=== PATIENT | male | born 1995 | race Caucasian/White ===

== ENCOUNTER 2021-02-14 03:14 | Emergency (ER) | payer SELFPAY ==
--- NOTE | ~2021-02-14 | XR_ITS ---
EXAMINATION: XR foot LT min 3V DATE: 02/14/2021 04:33 INDICATION: Heel laceration. TECHNIQUE: Dorsoplantar, two oblique and lateral views of the left foot were obtained. COMPARISON: None. FINDINGS: Alignment is normal. No fracture. Joint spaces are normal. Soft tissues are unremarkable. No radiopaq ue foreign bodies. IMPRESSION: 1. Negative left foot radiographs. Reviewed, dictated and finalized at location A.
[2021-02-14 03:17] VITALS: BP 130/84; PULSE 106; RESP 18; TEMP 36.7; O2SAT 100
--- NOTE | 2021-02-14 03:20 | ED.WOUNDLAC ---
HPI - Wound/Laceration General Chief Complaint: Wound/Laceration <Milli Bay MD - Last Filed: 02/15/21 07:47> Stated Complaint: lacerations to left leg, knee, & heel <Milli Bay MD - Last Filed: 02/15/21 07:47> Time Seen by Provider: 02/14/21 03:20 <Milli Bay MD - Last Filed: 02/15/21 07:47> Source: family and EMS <Milli Bay MD - Last Filed: 02/15/21 07:47> Mode of arrival: EMS <Milli Bay MD - Last Filed: 02/15/21 07:47> Limitations: other (combativeness) <Milli Bay MD - Last Filed: 02/15/21 07:47> History of Present Illness HPI narrative: 25-year-old male brought by EMS with police escort after police were called by family. Apparently patient drank 3 bottles of wine started to get violent and agitated and then stepped on a glass table, stepped and also smashed a picture with his foot. Patient arrives intoxicated alert combative with left heel laceration and 2 lacerations to the proximal knee. Sisters at bedside. Sister states she is able to call police. When tried to direct patient, patient became combative with the event security officer and staff; patient was then medicated and put in restraints. Family feels patient needs to be evaluated for depression, HI and combatitiveness. <Milli Bay MD - Last Filed: 02/15/21 07:47> Related Data Allergies/Adverse Reactions: Allergies Allergy/AdvReac Type Severity Reaction Status Date / Time No Known Allergies Allergy Unknown Verified 02/14/21 03:26 <Milli Bay MD - Last Filed: 02/15/21 07:47> Review of Systems Review of Systems: ROS unobtainable: Yes unobtainable due to medical condition <Milli Bay MD - Last Filed: 02/15/21 07:47> PMFSH Social History Social History: Social History Smoking status: Never smoker Alcohol intake: never <Milli Bay MD - Last Filed: 02/15/21 07:47> Exam Narrative: General: alert, afebrile, agitated, intoxicated Head: normocephalic, atraumatic Eyes: EOMI bilaterally, anicteric, no injection ENT: moist mucous membranes, oropharynx patent, no rhinorrhea Chest: equal chest rise bilaterally, no chest wall trauma noted CV: regular rate, no YARA B, calf size equal B EXT: L LEG; 2 x 1 cm superficial wounds to distal thigh and knee; 3 cm laceration to proximal L plantar heel subcutaneous; moving all extremities equally Skin: warm, dry, no pallor Neuro: alert, oriented x 3; CN 2-12 grossly intact, no dysarthria Psych: affect labile, angry, anxious, thought content agitated, combative; intoxicated denies SI/HI <Milli Bay MD - Last Filed: 02/15/21 07:47> Course Course Emergency Course: @ 1245 deemed still too sleepy to evaluate by crisis <Alexandre Gifford MD - Last Filed: 02/14/21 14:29> Reevaluation(s) Reevaluation #1: Patient combative, spitting on floor, refuses to get in gown. Intoxicated. Will medicate for safety. Alvaro ALMANZA called. <Milli Bay MD - Last Filed: 02/15/21 07:47> Received signout patient pending reevaluation by crisis. Patient was resting comfortably Active SI or HI. He was evaluated by crisis who dropped a safety plan with the patient. Patient comfortable with outpatient plan. <Mando Haque MD - Last Filed: 02/14/21 21:38> Date: 02/14/21 <Milli Bay MD - Last Filed: 02/15/21 07:47> 02/14/21 <Mando Haque MD - Last Filed: 02/14/21 21:38> Time: 03:31 <Milli Bay MD - Last Filed: 02/15/21 07:47> 19:56 <Mando Haque MD - Last Filed: 02/14/21 21:38> Reevaluation #2: Patient asleep NAD, restraints removed <Milli Bay MD - Last Filed: 02/15/21 07:47> Date: 02/14/21 <Milli Bay MD - Last Filed: 02/15/21 07:47> Time: 04:35 <Milli Bay MD - Last Filed: 02/15/21 07:47> Reevaluation #3: Patient asleep due for ETOH red
[2021-02-14] MEDS: HALOPERIDOL LACTATE 5 MG/ML VIAL IM (03:29)
[2021-02-14] MEDS: diphenhydrAMINE HCl INJ 50 MG/ML VIAL 25 MG IM (03:58)
[2021-02-14] MEDS: LORazepam INJ (*CRX) 2 MG/ML VIAL IM (03:58)
[2021-02-14 04:13] LABS: Basophils Absolute Auto 0.1 K/mm3 (0.0-0.1); Basophils Percent Auto 0.7 % (0.2-1.2); Eosinophils Percent Auto 0.1 % (0-4.4); Hematocrit 45.3 % (42.0-52.0); Hemoglobin 15.2 g/dL (14.0-18.0); Immature Granulocyte Absolute 0.03 K/mm3 (0.00-0.031); Immature Granulocyte Percent A 0.3 % (0-0.5); Lymphocytes Absolute Auto 3.69 K/mm3 (0.9-3.2); Mean Corpuscular HGB Conc 33.6 g/dl (32-36); Mean Corpuscular Hemoglobin 30.2 pg (26-34); Mean Corpuscular Volume 90.1 fl (80-100); Mean Platelet Volume 8.4 fl (7.4-10.4); Monocytes Absolute Auto 0.6 K/mm3 (0.1-0.6); Monocytes Percent Auto 5.8 % (2.6-8.5); Neutrophils Absolute Auto 5.1 K/mm3 (1.3-6.7); Neutrophils Percent Auto 54.1 % (45.5-73.1); Platelet Count Result 370 k/mm3 (150-375); Red Blood Count 5.03 M/mm3 (4.6-6.20); Red Cell Distribution Width 12.1 % (11.5-14.5); White Blood Count 9.5 K/mm3 (4.5-10.0)
--- NOTE | 2021-02-14 04:16 | PC.NURSE ---
Pt screaming and cussing at this RN. Pt running around room, pt tore curtain down. ERP and charge aware. Medications ordered via erp and security called.
[2021-02-14 04:19] LABS: Add Urine Microscopic? YES; Appearance Urine Cloudy (Clear); Bilirubin Urine Negative (Negative); Blood Urine Negative (Negative); Color Urine Yellow (Yellow); Glucose Urine UA Negative (Negative); Ketones Urine Negative (Negative); Leukocyte Esterase Ur Trace LEU/UL (Negative); Mucus Urine Rare /lpf; Nitrate Urine Negative (Negative); Protein Urine 2+ mg/dL (Negative); RBC Urine 0-2 /hpf (0-2); Specific Grav Ur 1.018 (1.001-1.035); Squamous Epithelial Cell Urine Rare /hpf (Few); Urobilinogen Urine Negative mg/dL (<2.0)
[2021-02-14 04:30] LABS: Alanine Aminotransferase 26 U/L (4-50); Albumin Level 5.2 g/dL (3.5-5.1); Alkaline Phosphatase 56 U/L (38-126); Anion Gap 25 mmol/L (8-16); Aspartate Amino Transferase 38 U/L (17-59); Bilirubin,Total 0.6 mg/dL (0.2-1.3); Blood Urea Nitrogen 8 mg/dL (9-20); Calcium 9.1 mg/dL (8.4-10.2); Carbon Dioxide 15 mmol/L (22-30); Chloride 105 mmol/L (98-107); Estimated CRCL calculation 70 ml/min; Estimated Glomerular Filt Rate > 60; Glucose 120 mg/dL (65-110); Lipase 55 U/L (23-300); Potassium 3.3 mmol/L (3.4-5.0); Sodium 145 mmol/L (137-145)
[2021-02-14 04:40] LABS: Amphetamine Screen Urine Negative (Negative); Barbiturate Screen Urine Negative (Negative); Benzodiazepines Screen Urine Negative (Negative); Cannabinoid Screen Urine Negative (Negative); Cocaine Screen Urine Negative (Negative); Methadone Screen Urine Negative (Negative); Opiate Screen Urine Negative (Negative); Phencyclidine Screen Urine Negative (Negative)
[2021-02-14 04:47] LABS: Acetaminophen < 10 ug/mL (10-30); Ethanol 160 mg/dL (<10); Salicylate < 1.0 mg/dL (2-20)
[2021-02-14] MEDS: LIDO 1%/EPINEPHRINE 1:100,000 10 ML VIAL (07:14)
--- NOTE | 2021-02-14 07:14 | PC.NURSE ---
administered the lido with epi/
[2021-02-14 08:38] LABS: Ethanol 49 mg/dL (<10)
--- NOTE | 2021-02-14 09:43 | PC.NURSE ---
Attempted to wake up patient at this time to assess [place] scale. Patient opened eyes and shakes head yes or no, but falls continues to fall asleep during interactions. Will assess in a little more time.
[2021-02-14 09:50] VITALS: BP 132/64; PULSE 75; RESP 18; O2SAT 98
--- NOTE | 2021-02-14 10:54 | PC.NURSE ---
Patient awoke at this time and spoke to this nurse. Patient opened eyes and responded to questions appropriately. States he remembers last night and reports he remembers he was angry, but does not remember why. Reports he kicked a picture frame at home causing the injury. Reports he has no SI/HI at this time. Reports he is not currently angry or upset. Patient appears calm and cooperative.
--- NOTE | 2021-02-14 11:01 | PC.NURSE ---
Crisis called at this time. Reports she will come in and assess patient. Reports it will be a bit before she is able. Will continue to monitor.
--- NOTE | 2021-02-14 12:20 | PC.NURSE ---
Crisis arrived to speak to patient at this time. Will continue to monitor.
--- NOTE | 2021-02-14 12:29 | PC.NURSE ---
Patient was being assessed by Nancy from Crisis. She reports patient is unable to answer questions appropriately at this time. She states the patient fell asleep during her assessment and changed his story during the assessment. Will continue to monitor patient.
[2021-02-14 14:21] VITALS: BP 125/83; PULSE 70; RESP 18; O2SAT 100
--- NOTE | 2021-02-14 16:24 | PC.NURSE ---
Patient stood up and ambulated in room. Patient ordered meal tray with this nurse. Provided to patient. Patient awake and oriented. Will continue to monitor. Nancy from crisis aware of status, awaiting her arrival to assess patient.
--- NOTE | 2021-02-14 18:10 | PC.NURSE ---
Spoke with jose pyle at this time. Informed me that Nancy would be here within the hour to reassess patient.
[2021-02-14 18:32] VITALS: BP 136/81; PULSE 73; RESP 18; O2SAT 100
--- NOTE | 2021-02-14 19:01 | PC.NURSE ---
Nancy from crisis arrives to ED at this time to reassess patient.
--- NOTE | 2021-02-14 19:34 | PC.NURSE ---
Assuming care of pt.
[2021-02-14 20:43] VITALS: BP 125/93; PULSE 89; RESP 16; O2SAT 100
== END 2021-02-14 20:44 | disposition home or self-care (01) ==
PROVIDERS: Emergency Medicine; Emergency Provider Emergency Medicine; PCP Family Medicine Adolescent Medicine
DX: S91.312A Laceration without foreign body, left foot, initial encounter (principal); R78.0 Finding of alcohol in blood; Y90.6 Blood alcohol level of 120-199 mg/100 ml; W25.XXXA Contact with sharp glass, initial encounter
CPT/HCPCS: 12002; 36415; 73630; 80053; 80307; 81001; 83690; 85025; 96372; 99284; J1200; J1630; J2060

== ENCOUNTER 2021-03-23 15:21 | Emergency (ER) | payer SELFPAY ==
[2021-03-23 15:41] VITALS: BP 128/73; PULSE 69; RESP 16; TEMP 37; O2SAT 100
--- NOTE | 2021-03-23 15:57 | ED.SKABFB ---
HPI - Skin/Abscess/Foreign Bdy General Chief complaint: Skin/Abscess/Foreign Body Stated complaint: redness and puss on back of lt hand Time Seen by Provider: 03/23/21 15:50 Source: patient and RN notes reviewed Mode of arrival: ambulatory Limitations: no limitations History of Present Illness HPI narrative: Raman is a 25-year-old male patient who ambulated into the [facility]. Patient states he has had a reddened area/bite to the left index finger for a week and a half. Patient states he popped to the area and a lot of lot of white drainage came out. Patient states it is increasing in size with increased pain. Patient has used peroxide at home. MD complaint: insect bite/sting Related Data Allergies Allergy/AdvReac Type Severity Reaction Status Date / Time No Known Allergies Allergy Unknown Verified 03/23/21 15:58 Review of Systems Review of Systems: CONSTITUTIONAL: Denies body aches, fever, chills, or sweats. EYES: Denies visual changes, redness, or discharge. ENT: Denies rhinorrhea, congestion, sore throat, or otalgia. CARDIOVASCULAR: Denies chest pain, palpitations, or edema. RESPIRATORY: Denies cough or dyspnea. GASTROINTESTINAL: Denies abdominal pain, nausea, vomiting, or diarrhea. GENITOURINARY: Denies dysuria or hematuria. SKIN: Denies rash, itching, + wound left index finger MUSCULOSKELETAL: Denies back pain, joint pain, or myalgia. NEUROLOGIC: Denies headache, numbness, tingling, or weakness. PSYCH: Denies depression or anxiety. All systems reviewed & are unremarkable except as noted in HPI and below PMFSH Social History Social History Smoking status: Never smoker Alcohol intake: never Exam Narrative: GENERAL: Well-appearing, well-nourished, and in no acute distress. HEAD: Normocephalic, atraumatic. EYES: EOMI. No redness or drainage. Conjunctivae normal. ENT: Mucous membranes pink and moist. Nares clear. NECK: Normal AROM. Supple. CHEST: No respiratory distress. MUSCULOSKELETAL: No bony tenderness. EXTREMITIES: Normal range of motion. No edema. SKIN: Warm, dry, no rash. Capillary refill normal. Normal skin turgor. 2cm x1cm erythemic area with 1cm x 0.5cm open area with white drainage. Area warm to touch. NEURO: No focal deficits. Alert and oriented x3. Gait steady. PSYCH: Normal affect. No signs of depression or anxiety. Course Vital Signs Vital signs: Vital Signs Temperature 37.0 C 03/23/21 15:41 Pulse Rate 69 03/23/21 15:41 Respiratory Rate 16 03/23/21 15:41 Blood Pressure 128/73 03/23/21 15:41 Pulse Oximetry 100 03/23/21 15:41 Temperature 37.0 C 03/23/21 15:41 Pulse Rate 69 03/23/21 15:41 Respiratory Rate 16 03/23/21 15:41 Blood Pressure 128/73 03/23/21 15:41 Pulse Oximetry 100 03/23/21 15:41 Reviewed MDM - Skin/Abscess/Foreign Bdy Differential Diagnosis Differential diagnosis: Likely abscess of skin or subcutaneous tissue, urticaria, allergic reaction to drug, cellulitis and insect bites Critical Care Time Critical Care Time Critical Care Time: No Discharge Plan Discharge Clinical Impression: Cellulitis Qualifiers: Site of cellulitis: extremity Site of cellulitis of extremity: finger Laterality: left Qualified Code(s): L03.012 - Cellulitis of left finger Abscess of skin or subcutaneous tissue Qualifiers: Site of cutaneous abscess: extremity Site of cutaneous abscess of extremity: hand Laterality: left Qualified Code(s): L02.512 - Cutaneous abscess of left hand Patient Disposition: Home, Self-Care Condition: Stable Instructions: Antibiotic Form, Cellulitis (ED), Abscess (ED) Additional Instructions: Wash area twice daily with soap and water.. Cover with a nonstick bandage while at work. Leave open to air when possible. Follow-up with your primary care physician for continued complaints after 10 days. Follow-up sooner for worsening of symptoms. Go to the ER immedi
== END 2021-03-23 16:05 | disposition home or self-care (01) ==
PROVIDERS: Emergency Provider Nurse Practitioner Family
DX: L03.012 Cellulitis of left finger (principal); L02.512 Cutaneous abscess of left hand
CPT/HCPCS: 99213; G0463

== ENCOUNTER 2025-01-07 18:57 | Emergency (ER) | payer SELFPAY ==
--- OUTSIDE RECORDS SUMMARY | 2024-03-28 11:45 | XMS_ITS ---
Author Organization [facility] [id number] [facility] Address [facility] [address] [facility] [address] [place] [address] Care Team Providers Care Crown Blocker Name Role Phone Shanika SHI, Celio Primary Care Provider Zana Morrissey Unavailable [phone] REASON FOR VISIT Consultation Social History Sex Assigned At : Social History Observation Description Sex Assigned At Male Encounters Encounter Location Date Provider Diagnosis [facility] [employer] [address] [address] 03/28/2024 Zana Fields Plan Of Treatment No Information Progress Notes * JUVENALMerrillANA ROSAOB:1995 (29 yo M)Acc No.[id number]:03/28/2024 Patient: ENEDELIA AVILESN Provider: CHI DEVINE :1995 A ge:28 Y S ex:Male Date:03/28/2024 Phone: Address:[address] [facility] Pcp:Celio Voss MD Subjective: * Chief Complaints: * C onsultation Billing Information: * Procedure Codes: * Electronic signature of CHI Pimentel on 01/07/2025 at 07:25 PM CDT Sign off status: Pending * Provider: CHI DEVINE Date: 1 05/29/2023 Generated for Melvina deng/Caro/eTransmitting on: 0 01/07/2025 07:25 PM CDT
[2025-01-07 18:59] VITALS: BP 144/86; PULSE 96; RESP 18; TEMP 36.5; O2SAT 100
--- NOTE | 2025-01-07 19:14 | ED_ITS ---
HPI - Dental/Oral General Chief complaint: Dental/Oral Stated complaint: tooth infection - wants antibiotics Time Seen by Provider: 01/07/25 19:08 History of Present Illness HPI Narrative: Patient is a 29-year-old male who presents emergency department this evening complaining of left lower dental pain. States that he has had a fractured tooth for a while and started bothering him on Thursday. Patient is concerned that it is now getting infected and is requesting antibiotics. States that he has been taking [id number] Tylenol with minimal to no relief. States that sometimes the pain prevent him from being able to sleep. Patient does not have a dentist. Denies any fevers or chills. Denies any chest symptoms or concerns at this time. Related Data Allergies Allergy/AdvReac Type Severity Reaction Status Date / Time No Known Allergies Allergy Unknown Verified 12/24/23 11:36 Review of Systems Review of Systems: All systems are reviewed and are negative unless stated otherwise in the HPI. [facility] Family History Family History Father Zeng syndrome Grandparent Zeng syndrome Social History Social History Smoking status: Current every day smoker Tobacco type: e-cigarettes/vaping Alcohol intake: current Alcohol use details: 1/2-1 pint per day Substance use type: marijuana and hallucinogens Exam Narrative: General: Alert, awake, afebrile, in no acute distress. HEENT: PERRL, no rhinorrhea, no post nasal drip, oropharynx clear, fractured left lower premolar tooth, no dental abscess noted. Neck: Trachea midline, no JVD, no lymphadenopathy. Cardiovascular: Regular rate and rhythm, no murmurs, rubs or gallops, no peripheral edema. Respiratory: Clear to auscultation bilaterally, no tachypnea, no wheezing, no rhonchi, no rubs, no respiratory distress. Abdomen: Soft, nontender, nondistended, no rebound, no guarding, no peritoneal signs. Musculoskeletal: No joint swelling or deformity, normal muscle tone. Skin: No rashes or petechia, no signs of infection. Psychiatric: Alert and oriented, normal behavior and judgment for situation. Neurological: Alert and oriented to person, place, and time. Follows all commands. No focal deficits, speech is clear and fluent. Course Vital Signs Vital signs: Vital Signs Temperature 97.7 F 01/07/25 18:59 Pulse Rate 96 01/07/25 18:59 Respiratory Rate 18 01/07/25 18:59 Blood Pressure 144/86 H 01/07/25 18:59 Pulse Oximetry 100 01/07/25 18:59 Temperature 97.7 F 01/07/25 18:59 Pulse Rate 96 01/07/25 18:59 Respiratory Rate 18 01/07/25 18:59 Blood Pressure 144/86 H 01/07/25 18:59 Pulse Oximetry 100 01/07/25 18:59 MDM - Dental/Oral MDM Narrative Medical decision making narrative: The patient was evaluated by myself in the emergency department. History is obtained from patient who is an independent historian and physical exam was performed. External medical records were reviewed at this time. Patient was administered an oral [place] 5/325 mg and 1st dose of Augmentin in the emergency department. Differential diagnosis considerations include dental fracture, dental caries, dental abscess. Comorbidities impacting this visit include none. I have evaluated and discussed social determinants of health with the patient that could potentially impact subsequent diagnosis and treatment plans. On repeat assessment of the patient, reevaluation revealed that the patient is doing well and is in no acute distress. Patient symptoms have improved since he arrived to our emergency department. Repeat vital signs were all reviewed and noted to be stable. Differential diagnosis and treatment plan were discussed with the patient at bedside. Patient agrees with discussion and after shared medical decision making agrees with discharge. All questions were answered to the patient's satisfaction. Patient will follow up with one of the dentists provided to him today in 3-5 days. Scripts for Augmentin and [place] to use as prescribed. Patient was provided with strict return precautions and instructed to return to the emergency department if any new or worsening symptoms develop. The patient was discharged in stable condition. Discharge Plan Discharge Clinical Impression: Toothache, Fracture of tooth Patient Disposition: Home Condition: Improved Instructions: Antibiotic Form, Toothache (ED) Additional Instructions: Please follow-up with the dentist you were provided with today within the next 3-5 days. Use the prescribed antibiotic as instructed in use the prescribed pain medication as needed for pain. Return to ED if any new or worsening symptoms develop. Patient Language: Greek Prescriptions: New hydrocodone-acetaminophen 5-325 mg tablet 1 tablet PO Q8H PRN (Reason: pain) Qty: 10 0RF amoxicillin-pot clavulanate 875-125 mg tablet 1 tablet PO Q12H 7 Days Qty: 14 0RF Follow-up/Referrals: Linsey Yip APRN [Primary Care Provider, Family Practice] - 1 Week Stand Alone Forms: Work/School Release IP Time of Disposition: 19:15
--- OUTSIDE RECORDS SUMMARY | 2025-01-07 19:26 | XMS_ITS | Patient Health Record ---
Author Organization [facility] [employer] Address [address] [facility] [address] [place] [address] Care Team Providers Care Senior Genetic Counselor Name Role Phone Celio Voss MD Primary Care Provider Sarah Zana Flynn Unavailable [phone] Surinder Novoa Unavailable [phone] Allergies No Known Allergies Reason For Referral No Information Medications Medication SIG (Take, Route, Frequency, Duration) Notes Start Date End Date Status QUEtiapine Fumarate 25 MG Tablet 1 tablet in the morning Oral Once a day; Duration: 30 days Active QUEtiapine Fumarate 50 MG Tablet 1 tablet at bedtime Orally Once a day; Duration: 30 days 02/10/2024 Active Social History Tobacco Use: Social History Observation Description Date Details (start date - stop date) Current Smoker 04/13/2917 - NA Sex Assigned At : Social History Observation Description Sex Assigned At Male Social History Miscellaneous: Social Info Question Answer Notes Advance Care Planning Are you your own decision-maker Yes Do you have Power of Metaphysician for Health or [facility]? No Safety issues: Are there any firearms in the house? No Social History Social Info Question Answer Notes Household: Marital Status: Single Number of Adults in household: 3 Number of Children in Household: 0 Level of Education: Not Finished College Drug/Alcohol: Social Info Question Answer Notes Drugs Have you used drugs other than those for medical reasons in the past 12 months? Yes Methamphetamine? No Crack? No LSD? No Ecstacy? No Prescription opiates? No Marijuana? Yes Ketamine? No PCP? No Is there a minor (18 years or younger) at risk at home? No Are you still using? Yes Do you want treatment? Yes AUDIT-C (Standard) Points 7 Interpretation Negative Did you have a drink contain ing alcohol in the past year? Yes How often did you have six or more drinks on one occasion in the past year? 2 to 4 times a month (2 points) How many drinks did you have on a typical day when you were drinking in the past year? 3 or 4 drinks (1 point) How often did you have a drink containing alcohol in the past year? Daily or almost daily (4 points) Tobacco Use: Social Info Question Answer Notes Tobacco Control (Standard) Tobacco use: Current smoker When did you start smoking? 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 Adm its Do you drink alcohol? Yes Problems Problem Type SNOMED Code ICD Code Onset Dates Problem Status W/U Status Risk Notes Problem Nightmares (035897818) Nightmares (F51.5) Active confirmed Problem Moderate recurrent major depression (44428319) MDD (major depressive disorder), recurrent episode, moderate (F33.1) Active confirmed Problem Ethanol abuse (16376179) ETOH abuse (F10.10) Active confirmed Vital Signs Heart Rate 73 /min 02/10/2024 Height-cm 167.64 cm 02/10/2024 Blood pressure diastolic 72 mm Hg 02/10/2024 Weight-kg 60.24 kg 02/10/2024 Height 66 in 02/10/2024 Blood pressure systolic 107 mm Hg 02/10/2024 Weight 132.8 lbs 02/10/2024 BMI 21.43 kg/m2 02/10/2024 Encounters Encounter Location Date Provider Diagnosis [facility] [employer] [facility] [address] [facility] [address] [address] 02/10/2024 Zana Fields ETOH abuse F10.10 ; MDD (major depressive disorder), recurrent episode, moderate F33.1 ; Polysubstance use disorder F19.90 ; Vapes nicotine containing substance Z72.0 and Nightmares F51.5 [facility] [employer] [facility] [address] [facility] [address] [address] 12/23/2024 Zana Fields [facility] [employer] [place] [address] [facility] [address] [facility] [address] [place] [address] 02/08/2024 Surinder Clubb MDD (major depressiv e disorder), recurrent episode, moderate F33.1 [facility] [employer] [place] [id number] [place] [address] 02/16/2024 Zana Fields [facility] [employer] [address] [place] [address] 02/19/2024 Surinder Novoa [facility] [employer] [address] [place] [address] 03/08/2024 Zana Fields MDD (major depressiv e disorder), recurrent episode, moderate F33.1 Assessments Encounter Date Diagnosis (ICD Code) Assessment Notes Treatment Notes Treatment Clinical Notes Section Notes 02/08/2024 MDD (major depressive disorder), recurrent episode, moderate (ICD-10 - F33.1) 02/10/2024 ETOH abuse (ICD-10 - F10.10) 1. Depression and anxiety: - Patient reports initial improvement with quetiapine 25 mg at bedtime but has experienced a return of symptoms, particularly anxiety in the evenings. Plan: - Increase quetiapine to 25 mg in the morning and 50 mg at bedtime to help with sleep and anxiety. - Monitor for side effects and effectiveness at follow-up visit. 2. Insomnia: - Patient reports drowsiness with quetiapine, especially when taken before work. Plan: - Advise patient to take quetiapine at bedtime and upon waking up to minimize drowsiness during work hours. 3. Alcohol use disorder: - Patient reports reduced alcohol consumption since starting naltrexone 50 mg daily, with only one episode of drinking in the past month. Plan: - Continue naltrexone 50 mg daily for alcohol cravings. - Monitor progress at follow-up visit. 4. Cannabis use: - Patient reports smoking cannabis three times a day, using high THC products. Plan: - Educate patient on the potential mood-altering effects of regular cannabis use, especially with high THC products. - Encourage patient to consider reducing cannabis use. - Monitor progress at follow-up visit. 5. Nicotine dependence: - Patient reports using nicotine vape and expresses interest in quitting. Plan: - Prescribe nicotine patches (21 mg) to help with nicotine cravings. - Advise patient to avoid vaping while using the patch due to potential increase in blood pressure and other side effects. - Encourage patient to find alternative ways to occupy their hands and mind, such as listening to podcasts or engaging in hobbies. 6. Social anxiety: - Patient reports possible social anxiety and difficulty engaging in social activities. Plan: - Continue to monitor and address social anxiety in future visits. - Consider additional therapeutic interventions if necessary. 7. Discontinued medication: - Patient reports no longer taking bupropion. Plan: - Update medication list to reflect the discontinuation of bupropion. 03/08/2024 MDD (major depressive disorder), recurrent episode, moderate (ICD-10 - F33.1) 02/10/2024 MDD (major depressive disorder), recurrent episode, moderate (ICD-10 - F33.1) 1. Depression and anxiety: - Patient reports initial improvement with quetiapine 25 mg at bedtime but has experienced a return of symptoms, particularly anxiety in the evenings. Plan: - Increase quetiapine to 25 mg in the morning and 50 mg at bedtime to help with sleep and anxiety. - Monitor for side effects and effectiveness at follow-up visit. 2. Insomnia: - Patient reports drowsiness with quetiapine, especially when taken before work. Plan: - Advise patient to take quetiapine at bedtime and upon waking up to minimize drowsiness during work hours. 3. Alcohol use disorder: - Patient reports reduced alcohol consumption since starting naltrexone 50 mg daily, with only one episode of drinking in the past month. Plan: - Continue naltrexone 50 mg daily for alcohol cravings. - Monitor progress at follow-up visit. 4. Cannabis use: - Patient reports smoking cannabis three times a day, using high THC products. Plan: - Educate patient on the potential mood-altering effects of regular cannabis use, especially with high THC products. - Encourage patient to consider reducing cannabis use. - Monitor progress at follow-up visit. 5. Nicotine dependence: - Patient reports using nicotine vape and expresses interest in quitting. Plan: - Prescribe nicotine patches (21 mg) to help with nicotine cravings. - Advise patient to avoid vaping while using the patch due to potential increase in blood pressure and other side effects. - Encourage patient to find alternative ways to occupy their hands and mind, such as listening to podcasts or engaging in hobbies. 6. Social anxiety: - Patient reports possible social anxiety and difficulty engaging in social activities. Plan: - Continue to monitor and address social anxiety in future visits. - Consider additional therapeutic interventions if necessary. 7. Discontinued medication: - Patient reports no longer taking bupropion. Plan: - Update medication list to reflect the discontinuation of bupropion. 02/10/2024 Polysubstance use disorder (ICD-10 - F19.90) cannabis use daily. Less alcohol use. 1. Depression and anxiety: - Patient reports initial improvement with quetiapine 25 mg at bedtime but has experienced a return of symptoms, particularly anxiety in the evenings. Plan: - Increase quetiapine to 25 mg in the morning and 50 mg at bedtime to help with sleep and anxiety. - Monitor for side effects and effectiveness at follow-up visit. 2. Insomnia: - Patient reports drowsiness with quetiapine, especially when taken before work. Plan: - Advise patient to take quetiapine at bedtime and upon waking up to minimize drowsiness during work hours. 3. Alcohol use disorder: - Patient reports reduced alcohol consumption since starting naltrexone 50 mg daily, with only one episode of drinking in the past month. Plan: - Continue naltrexone 50 mg daily for alcohol cravings. - Monitor progress at follow-up visit. 4. Cannabis use: - Patient reports smoking cannabis three times a day, using high THC products. Plan: - Educate patient on the potential mood-altering effects of regular cannabis use, especially with high THC products. - Encourage patient to consider reducing cannabis use. - Monitor progress at follow-up visit. 5. Nicotine dependence: - Patient reports using nicotine vape and expresses interest in quitting. Plan: - Prescribe nicotine patches (21 mg) to help with nicotine cravings. - Advise patient to avoid vaping while using the patch due to potential increase in blood pressure and other side effects. - Encourage patient to find alternative ways to occupy their hands and mind, such as listening to podcasts or engaging in hobbies. 6. Social anxiety: - Patient reports possible social anxiety and difficulty engaging in social activities. Plan: - Continue to monitor and address social anxiety in future visits. - Consider additional therapeutic interventions if necessary. 7. Discontinued medication: - Patient reports no longer taking bupropion. Plan: - Update medication list to reflect the discontinuation of bupropion. 02/10/2024 Vapes nicotine containing substance (ICD-10 - Z72.0) Learning About Benefits of Quitting Smoking material was published, Stopping Smokeless Tobacco Use: Care Instructions material was published, Quitting Tobacco: Care Instructions material was published 1. Depression and anxiety: - Patient reports initial improvement with quetiapine 25 mg at bedtime but has experienced a return of symptoms, particularly anxiety in the evenings. Plan: - Increase quetiapine to 25 mg in the morning and 50 mg at bedtime to help with sleep and anxiety. - Monitor for side effects and effectiveness at follow-up visit. 2. Insomnia: - Patient reports drowsiness with quetiapine, especially when taken before work. Plan: - Advise patient to take quetiapine at bedtime and upon waking up to minimize drowsiness during work hours. 3. Alcohol use disorder: - Patient reports reduced alcohol consumption since starting naltrexone 50 mg daily, with only one episode of drinking in the past month. Plan: - Continue naltrexone 50 mg daily for alcohol cravings. - Monitor progress at follow-up visit. 4. Cannabis use: - Patient reports smoking cannabis three times a day, using high THC products. Plan: - Educate patient on the potential mood-altering effects of regular cannabis use, especially with high THC products. - Encourage patient to consider reducing cannabis use. - Monitor progress at follow-up visit. 5. Nicotine dependence: - Patient reports using nicotine vape and expresses interest in quitting. Plan: - Prescribe nicotine patches (21 mg) to help with nicotine cravings. - Advise patient to avoid vaping while using the patch due to potential increase in blood pressure and other side effects. - Encourage patient to find alternative ways to occupy their hands and mind, such as listening to podcasts or engaging in hobbies. 6. Social anxiety: - Patient reports possible social anxiety and difficulty engaging in social activities. Plan: - Continue to monitor and address social anxiety in future visits. - Consider additional therapeutic interventions if necessary. 7. Discontinued medication: - Patient reports no longer taking bupropion. Plan: - Update medication list to reflect the discontinuation of bupropion. 02/10/2024 Nightmares (ICD-10 - F51.5) 1. Depression and anxiety: - Patient reports initial improvement with quetiapine 25 mg at bedtime but has experienced a return of symptoms, particularly anxiety in the evenings. Plan: - Increase quetiapine to 25 mg in the morning and 50 mg at bedtime to help with sleep and anxiety. - Monitor for side effects and effectiveness at follow-up visit. 2. Insomnia: - Patient reports drowsiness with quetiapine, especially when taken before work. Plan: - Advise patient to take quetiapine at bedtime and upon waking up to minimize drowsiness during work hours. 3. Alcohol use disorder: - Patient reports reduced alcohol consumption since starting naltrexone 50 mg daily, with only one episode of drinking in the past month. Plan: - Continue naltrexone 50 mg daily for alcohol cravings. - Monitor progress at follow-up visit. 4. Cannabis use: - Patient reports smoking cannabis three times a day, using high THC products. Plan: - Educate patient on the potential mood-altering effects of regular cannabis use, especially with high THC products. - Encourage patient to consider reducing cannabis use. - Monitor progress at follow-up visit. 5. Nicotine dependence: - Patient reports using nicotine vape and expresses interest in quitting. Plan: - Prescribe nicotine patches (21 mg) to help with nicotine cravings. - Advise patient to avoid vaping while using the patch due to potential increase in blood pressure and other side effects. - Encourage patient to find alternative ways to occupy their hands and mind, such as listening to podcasts or engaging in hobbies. 6. Social anxiety: - Patient reports possible social anxiety and difficulty engaging in social activities. Plan: - Continue to monitor and address social anxiety in future visits. - Consider additional therapeutic interventions if necessary. 7. Discontinued medication: - Patient reports no longer taking bupropion. Plan: - Update medication list to reflect the discontinuation of bupropion. Plan Of Treatment Pending Test Test Name Order Date Vitamin D, 1,25 Dihydroxy 01/05/2024 Liver Function Test (LFT) 01/05/2024 THYROID PANEL WITH TSH (7444) 01/05/2024 COMPREHENSIVE METABOLIC PANEL (03385) CBC (H/H, RBC, INDICES, WBC, PLT) (1759) 01/05/2024 HEMOGLOBIN A1c (496) 01/05/2024 VITAMIN B12 (927) 01/05/2024 UDT 01/05/2024 Medical (General) History Medical History History ICD Code Past Psychiatric History: Anxiety Disord er,PTSD abdominal aortic aneurysm: No atrial fibrillation: No chronic fatigue syndrome: No essential tremor: No hyperlipidemia: No hypertension: No Parkinson's disease: No restless leg syndrome: No stroke: No subdural hematoma: No type 1 diabetes mellitus: No type 2 diabetes mellitus: No vitamin B12 deficiency: No vitamin D deficiency: No
[2025-01-07] MEDS: HYDROcodone/acetaminophen (*CRX) 5-325 MG TABLET 1 TAB PO (19:27)
== END 2025-01-07 19:28 | disposition home or self-care (01) ==
LOC: ANHED 19:24
PROVIDERS: Emergency Provider Emergency Medicine; PCP Nurse Practitioner Family
DX: S02.5XXA Fracture of tooth (traumatic), initial encounter for closed fracture (principal); K08.89 Other specified disorders of teeth and supporting structures; F17.290 Nicotine dependence, other tobacco product, uncomplicated; X58.XXXA Exposure to other specified factors, initial encounter
CPT/HCPCS: 99283; A9270